=== PATIENT | male | born 1945 | race Hispanic/Latino ===

== ENCOUNTER 2022-02-12 10:56 | Emergency (ER) | payer MEDICARE, OTHER ==
[~2022-02-12 10:56] MED LIST: Iopamidol 300 61% 100 ML VIAL FS ONE
[2022-02-12] MEDS ORDERED: Mag-Al Plus 1200 MG/1200 MG/120 MG/30 ML UDCUP ONE (12:13)
[2022-02-12] MEDS ORDERED: Lidocaine Viscous Sol 2% 15 ml UD Cup ONE (12:13)
[2022-02-12 13:28] LABS: #Eosinphils 0.2 10x3/uL (0.0-0.5); #Monocytes 0.6 10x3/uL (0.0-1.1); #Neutrophils 2.4 10x3/uL (1.5-8.4); %Basophils 0.9 % (0.0-2.0); %Eosinophils 4.2 % (0.0-6.0); %Lymphocytes 23.8 % (18.0-47.0); %Monocytes 14.5 % (0.0-10.0); %Neutrophils 56.4 % (40.0-75.0); Hemoglobin 11.6 g/dL (13.5-17.5); Mean Corpuscular HGB CONC 33.3 g/dL (32.0-36.0); Mean Corpuscular Hemoglobin 30.6 pg (27.0-33.0); Mean Corpuscular Volume 91.8 fl (81.2-95.1); Mean Platelet Volume 11.4 fl (7.4-10.4); Platelet Count 106 10x3/uL (150-450); RBC Distribution Width 15.3 % (11.5-14.5); Red Blood Cell (RBC) Count 3.79 10x6/uL (4.32-5.72); White Blood Cell (WBC) Count 4.3 10x3/uL (3.5-10.5)
[2022-02-12 13:33] LABS: ALT (SGPT) 12 U/L (8-55); AST (SGOT) 28 U/L (5-34); Albumin 3.3 g/dL (3.4-4.8); Alkaline Phosphatase 50 U/L (40-110); Anion Gap 15 mmol/L (10-20); BUN (Urea Nitrogen) 27 mg/dL (8.4-25.7); Bilirubin, Total 0.4 mg/dL (0.2-1.2); CK (CPK) 269 U/L (30-200); Calc. Creatinine Clearance 0 mL/min (70-130); Calcium 8.4 mg/dL (7.8-10.44); Carbon Dioxide 26 mmol/L (23-31); Chloride 97 mmol/L (98-107); Globulin 2.8 g/dL (2.4-3.5); Glucose 94 mg/dL (83-110); Lipase 20 U/L (8-78); Potassium 3.8 mmol/L (3.5-5.1); Protein, Total 6.1 g/dL (5.8-8.1); Sodium 134 mmol/L (136-145)
[2022-02-12 13:54] LABS: CKMB 2.6 ng/mL (0-6.6)
== END 2022-02-12 14:25 | disposition home or self-care (01) ==
LOC: CSHERS 10:56
DX: K29.00 Acute gastritis without bleeding (principal); I10 Essential (primary) hypertension; I12.0 Hypertensive chronic kidney disease with stage 5 chronic kidney disease or end stage renal disease; N18.6 End stage renal disease; Z99.2 Dependence on renal dialysis
CPT/HCPCS: 36415; 74177; 76705; 80053; 82550; 82553; 83605; 83690; 84484; 85025; 93005

== ENCOUNTER 2022-03-29 12:31 | Inpatient (IN) | payer OTHER, MEDICAID ==
[2022-03-29 13:04] VITALS: BMI 26.0
[2022-03-29] MEDS ORDERED: Ondansetron PF 4 MG/2 ML Vial IVP PRN (14:42)
[2022-03-29] MEDS ORDERED: Ondansetron ODT 4 MG TAB PO PRN (14:42)
[2022-03-29] MEDS ORDERED: Meclizine HCl 12.5 MG TAB PO PRN (14:55)
[2022-03-29] MEDS ORDERED: Amlodipine 10 MG TAB PO SCH (16:45)
[2022-03-29] MEDS ORDERED: Meclizine HCl 12.5 MG TAB PO SCH (17:00)
[2022-03-29] MEDS: Carvedilol 3.125 MG TAB PO SCH (17:07)
[2022-03-29] MEDS: hydrALAZINE 20 MG/ML VIAL SLOW IVP PRN (17:07)
[2022-03-29] MEDS: Meclizine HCl 12.5 MG TAB PO SCH (21:12)
[2022-03-29] MEDS: Acetaminophen 325 MG TAB PO PRN (21:12)
[2022-03-30] MEDS: hydrALAZINE 20 MG/ML VIAL SLOW IVP PRN ×2 (00:10→05:00)
[2022-03-30 01:02] LABS: Hemoglobin A1c 5.3 % (4.0-6.0)
[2022-03-30] MEDS ORDERED: Nitroglycerin 2% Ointment 1 INCH/1 GM Packet TOP SCH (02:45)
[2022-03-30] MEDS: Acetaminophen 325 MG TAB PO PRN (04:14)
[2022-03-30 04:44] LABS: #Basophils 0.1 10x3/uL (0.0-0.2); #Eosinphils 0.2 10x3/uL (0.0-0.5); #Monocytes 0.6 10x3/uL (0.0-1.1); #Neutrophils 2.5 10x3/uL (1.5-8.4); %Basophils 1.1 % (0.0-2.0); %Eosinophils 5.3 % (0.0-6.0); %Lymphocytes 21.6 % (18.0-47.0); %Monocytes 13.3 % (0.0-10.0); %Neutrophils 58.5 % (40.0-75.0); Mean Corpuscular HGB CONC 34.1 g/dL (32.0-36.0); Mean Corpuscular Hemoglobin 30.9 pg (27.0-33.0); Mean Corpuscular Volume 90.4 fl (81.2-95.1); Mean Platelet Volume 10.9 fl (7.4-10.4); Platelet Count 133 10x3/uL (150-450); RBC Distribution Width 18.6 % (11.5-14.5); Red Blood Cell (RBC) Count 3.24 10x6/uL (4.32-5.72); White Blood Cell (WBC) Count 4.4 10x3/uL (3.5-10.5)
[2022-03-30 05:07] LABS: ALT (SGPT) 12 U/L (8-55); AST (SGOT) 25 U/L (5-34); Albumin 3.1 g/dL (3.4-4.8); Alkaline Phosphatase 76 U/L (40-110); Anion Gap 16 mmol/L (10-20); BUN (Urea Nitrogen) 33 mg/dL (8.4-25.7); Bilirubin, Total 0.5 mg/dL (0.2-1.2); Calc. Creatinine Clearance 8 mL/min (70-130); Calcium 8.3 mg/dL (7.8-10.44); Carbon Dioxide 26 mmol/L (23-31); Chloride 101 mmol/L (98-107); Estimated GFR 6; Globulin 2.9 g/dL (2.4-3.5); Glucose 102 mg/dL (83-110); Potassium 5.2 mmol/L (3.5-5.1); Sodium 138 mmol/L (136-145)
[2022-03-30] MEDS: Meclizine HCl 12.5 MG TAB PO SCH ×2 (06:22→13:49)
[2022-03-30] MEDS: Carvedilol 3.125 MG TAB PO SCH ×2 (08:22→17:26)
[2022-03-30] MEDS: Aspirin 81 mg Enteric Coated Tablet PO SCH (08:22)
[2022-03-30] MEDS: Amlodipine 10 MG TAB PO SCH (08:54)
[2022-03-30] MEDS ORDERED: Amlodipine 5 MG TAB PO SCH (09:00)
[2022-03-30] MEDS: EPOETIN ALFA-EPBX (ESRD) 4,000 UNIT/ML VIAL SC SCH (09:09)
[2022-03-30] MEDS: Heparin 5,000 UNITS/ML VIAL SC SCH ×2 (10:00→20:55)
[2022-03-30] MEDS ORDERED: Heparin 10,000 UNITS/ 10 ML VIAL FS SCH (11:30)
[2022-03-30] MEDS: HYDROcodone/Acetaminophen 5/325 mg Tablet PO PRN (14:56)
[2022-03-30] MEDS ORDERED: Meclizine HCl 25 MG TAB PO SCH ×2 (15:45→16:00)
[2022-03-30] MEDS ORDERED: hydrALAZINE 25 MG TAB PO SCH (16:00)
[2022-03-30] MEDS: Meclizine HCl 25 MG TAB PO SCH (20:53)
[2022-03-30] MEDS: hydrALAZINE 25 MG TAB PO SCH (20:54)
[2022-03-31 05:04] LABS: Hemoglobin 9.7 g/dL (13.5-17.5); Mean Corpuscular Hemoglobin 30.8 pg (27.0-33.0); Mean Corpuscular Volume 90.5 fl (81.2-95.1); Mean Platelet Volume 11.4 fl (7.4-10.4); Platelet Count 134 10x3/uL (150-450); RBC Distribution Width 18.6 % (11.5-14.5); Red Blood Cell (RBC) Count 3.15 10x6/uL (4.32-5.72); White Blood Cell (WBC) Count 3.9 10x3/uL (3.5-10.5)
[2022-03-31 05:14] LABS: Anion Gap 15 mmol/L (10-20); BUN (Urea Nitrogen) 21 mg/dL (8.4-25.7); Calc. Creatinine Clearance 11 mL/min (70-130); Calcium 8.1 mg/dL (7.8-10.44); Carbon Dioxide 28 mmol/L (23-31); Chloride 100 mmol/L (98-107); Estimated GFR 10; Glucose 79 mg/dL (83-110); Phosphorus 3.2 mg/dL (2.3-4.7); Potassium 4.5 mmol/L (3.5-5.1); Sodium 138 mmol/L (136-145)
[2022-03-31 06:10] LABS: MDiff Complete? YES
[2022-03-31 07:21] LABS: Eosinophils 3 % (0-10); Lymphocytes 8 % (21-51); Monocytes 24 % (0-10); Neutrophil 65 % (42-75)
[2022-03-31 07:24] LABS: Hypochromia SLIGHT = 6-15 cells (100X) (0-5/hpf); Target Cells SLIGHT = 2-5 cells (100X) (0-1/hpf)
[2022-03-31 07:25] LABS: Platelet Morphology Comment Appears Adequate
[2022-03-31] MEDS: hydrALAZINE 25 MG TAB PO SCH ×3 (09:23→20:13)
[2022-03-31] MEDS: Aspirin 81 mg Enteric Coated Tablet PO SCH (09:23)
[2022-03-31] MEDS: Carvedilol 3.125 MG TAB PO SCH ×2 (09:23→16:28)
[2022-03-31] MEDS: Amlodipine 10 MG TAB PO SCH (09:23)
[2022-03-31] MEDS: Heparin 5,000 UNITS/ML VIAL SC SCH ×2 (09:24→20:13)
[2022-03-31] MEDS: Meclizine HCl 25 MG TAB PO SCH ×2 (09:24→20:14)
[2022-04-01] MEDS: HYDROcodone/Acetaminophen 5/325 mg Tablet PO PRN ×3 (00:17→21:59)
[2022-04-01] MEDS: Carvedilol 3.125 MG TAB PO SCH ×2 (08:56→17:43)
[2022-04-01] MEDS: Meclizine HCl 25 MG TAB PO SCH ×2 (08:56→21:38)
[2022-04-01] MEDS: Amlodipine 10 MG TAB PO SCH (08:56)
[2022-04-01] MEDS: Aspirin 81 mg Enteric Coated Tablet PO SCH (08:56)
[2022-04-01] MEDS: Heparin 5,000 UNITS/ML VIAL SC SCH ×2 (08:57→21:39)
[2022-04-01] MEDS: hydrALAZINE 25 MG TAB PO SCH ×3 (08:57→21:38)
[2022-04-01] MEDS: Melatonin 3 MG TAB PO PRN (23:34)
[2022-04-02 05:58] LABS: Anion Gap 15 mmol/L (10-20); BUN (Urea Nitrogen) 29 mg/dL (8.4-25.7); Calc. Creatinine Clearance 10 mL/min (70-130); Carbon Dioxide 27 mmol/L (23-31); Chloride 99 mmol/L (98-107); Estimated GFR 9; Glucose 87 mg/dL (83-110); Potassium 4.9 mmol/L (3.5-5.1); Sodium 136 mmol/L (136-145)
[2022-04-02 06:01] LABS: Hemoglobin 10.5 g/dL (13.5-17.5); Mean Corpuscular HGB CONC 34.1 g/dL (32.0-36.0); Mean Corpuscular Hemoglobin 30.9 pg (27.0-33.0); Mean Corpuscular Volume 90.6 fl (81.2-95.1); Mean Platelet Volume 10.3 fl (7.4-10.4); Platelet Count 154 10x3/uL (150-450); RBC Distribution Width 18.8 % (11.5-14.5); White Blood Cell (WBC) Count 4.6 10x3/uL (3.5-10.5)
[2022-04-02 06:29] LABS: MDiff Complete? YES
[2022-04-02 06:47] LABS: Eosinophils 5 % (0-10); Lymphocytes 31 % (21-51); Monocytes 14 % (0-10); Neutrophil 50 % (42-75)
[2022-04-02 06:48] LABS: Platelet Morphology Comment Appears Adequate; RBC Morphology Normal
[2022-04-02] MEDS: HYDROcodone/Acetaminophen 5/325 mg Tablet PO PRN ×2 (08:23→22:44)
[2022-04-02] MEDS: Meclizine HCl 25 MG TAB PO SCH ×2 (08:23→22:35)
[2022-04-02] MEDS: Carvedilol 3.125 MG TAB PO SCH ×2 (08:24→18:56)
[2022-04-02] MEDS: Amlodipine 10 MG TAB PO SCH (08:24)
[2022-04-02] MEDS: hydrALAZINE 25 MG TAB PO SCH ×3 (08:24→22:35)
[2022-04-02] MEDS: Heparin 5,000 UNITS/ML VIAL SC SCH ×2 (08:24→22:35)
[2022-04-02] MEDS: Aspirin 81 mg Enteric Coated Tablet PO SCH (08:24)
[2022-04-02] MEDS: Melatonin 3 MG TAB PO PRN (22:44)
[2022-04-03] MEDS: Meclizine HCl 25 MG TAB PO SCH ×2 (08:22→21:13)
[2022-04-03] MEDS: HYDROcodone/Acetaminophen 5/325 mg Tablet PO PRN ×2 (08:22→21:12)
[2022-04-03] MEDS: Aspirin 81 mg Enteric Coated Tablet PO SCH (08:23)
[2022-04-03] MEDS: Carvedilol 3.125 MG TAB PO SCH ×2 (08:23→17:08)
[2022-04-03] MEDS: Amlodipine 10 MG TAB PO SCH (08:27)
[2022-04-03] MEDS: hydrALAZINE 25 MG TAB PO SCH ×3 (08:27→21:12)
[2022-04-03] MEDS: Heparin 5,000 UNITS/ML VIAL SC SCH ×2 (08:40→21:15)
[2022-04-04] MEDS: HYDROcodone/Acetaminophen 5/325 mg Tablet PO PRN (01:16)
[2022-04-04] MEDS: Aspirin 81 mg Enteric Coated Tablet PO SCH (09:35)
[2022-04-04] MEDS: hydrALAZINE 25 MG TAB PO SCH ×3 (09:37→20:10)
[2022-04-04] MEDS: Meclizine HCl 25 MG TAB PO SCH ×2 (09:37→20:10)
[2022-04-04] MEDS: Heparin 5,000 UNITS/ML VIAL SC SCH ×2 (09:37→20:10)
[2022-04-04] MEDS: Carvedilol 3.125 MG TAB PO SCH ×2 (09:37→19:32)
[2022-04-04] MEDS: Amlodipine 10 MG TAB PO SCH (09:37)
[2022-04-04] MEDS: Acetaminophen 325 MG TAB PO PRN (09:38)
[2022-04-04] MEDS ORDERED: Bisacodyl 10 MG SUPP PR PRN (18:52)
[2022-04-04] MEDS: Polyethylene Glycol 3350 17 GM Packet PO SCH (20:09)
[2022-04-04] MEDS: Senokot S 8.6-50 MG TAB PO SCH (20:10)
[2022-04-05] MEDS: Acetaminophen 325 MG TAB PO PRN (05:32)
[2022-04-05] MEDS: Polyethylene Glycol 3350 17 GM Packet PO SCH ×2 (08:32→20:29)
[2022-04-05] MEDS: Senokot S 8.6-50 MG TAB PO SCH ×2 (08:32→20:29)
[2022-04-05] MEDS: Aspirin 81 mg Enteric Coated Tablet PO SCH (08:32)
[2022-04-05] MEDS: Carvedilol 3.125 MG TAB PO SCH ×2 (08:32→15:18)
[2022-04-05] MEDS: Meclizine HCl 25 MG TAB PO SCH ×2 (08:32→20:29)
[2022-04-05] MEDS: Amlodipine 10 MG TAB PO SCH (08:32)
[2022-04-05] MEDS: hydrALAZINE 25 MG TAB PO SCH ×3 (08:32→20:29)
[2022-04-05] MEDS: Heparin 5,000 UNITS/ML VIAL SC SCH ×2 (08:33→20:25)
[2022-04-05] MEDS ORDERED: Milk Of Magnesia 30 ML UDCUP PO SCH (15:00)
[2022-04-06 05:40] LABS: #Basophils 0.1 10x3/uL (0.0-0.2); #Eosinphils 0.3 10x3/uL (0.0-0.5); #Monocytes 0.7 10x3/uL (0.0-1.1); #Neutrophils 2.2 10x3/uL (1.5-8.4); %Basophils 1.3 % (0.0-2.0); %Eosinophils 5.7 % (0.0-6.0); %Lymphocytes 33.3 % (18.0-47.0); %Monocytes 13.8 % (0.0-10.0); %Neutrophils 45.3 % (40.0-75.0); Hemoglobin 9.4 g/dL (13.5-17.5); Mean Corpuscular HGB CONC 34.4 g/dL (32.0-36.0); Mean Corpuscular Hemoglobin 31.8 pg (27.0-33.0); Mean Corpuscular Volume 92.2 fl (81.2-95.1); Mean Platelet Volume 10.4 fl (7.4-10.4); Platelet Count 178 10x3/uL (150-450); RBC Distribution Width 20.4 % (11.5-14.5); Red Blood Cell (RBC) Count 2.96 10x6/uL (4.32-5.72); White Blood Cell (WBC) Count 4.8 10x3/uL (3.5-10.5)
[2022-04-06 05:59] LABS: ALT (SGPT) 14 U/L (8-55); AST (SGOT) 25 U/L (5-34); Albumin 3.1 g/dL (3.4-4.8); Alkaline Phosphatase 58 U/L (40-110); Anion Gap 19 mmol/L (10-20); BUN (Urea Nitrogen) 59 mg/dL (8.4-25.7); Bilirubin, Direct 0.2 mg/dL (0.1-0.3); Bilirubin, Total 0.5 mg/dL (0.2-1.2); Calc. Creatinine Clearance 7 mL/min (70-130); Carbon Dioxide 23 mmol/L (23-31); Chloride 102 mmol/L (98-107); Estimated GFR 5; Glucose 82 mg/dL (83-110); Magnesium 2.5 mg/dL (1.6-2.6); Potassium 5.5 mmol/L (3.5-5.1); Sodium 138 mmol/L (136-145)
[2022-04-06] MEDS: Carvedilol 3.125 MG TAB PO SCH ×2 (10:19→17:31)
[2022-04-06] MEDS: Aspirin 81 mg Enteric Coated Tablet PO SCH (10:19)
[2022-04-06] MEDS: Heparin 5,000 UNITS/ML VIAL SC SCH ×2 (10:19→22:15)
[2022-04-06] MEDS: Amlodipine 10 MG TAB PO SCH (10:19)
[2022-04-06] MEDS: Polyethylene Glycol 3350 17 GM Packet PO SCH ×2 (10:20→22:15)
[2022-04-06] MEDS: Senokot S 8.6-50 MG TAB PO SCH ×2 (10:20→22:14)
[2022-04-06] MEDS: hydrALAZINE 25 MG TAB PO SCH ×3 (10:20→22:14)
[2022-04-06] MEDS: Meclizine HCl 25 MG TAB PO SCH ×2 (10:20→22:14)
[2022-04-06] MEDS: EPOETIN ALFA-EPBX (ESRD) 4,000 UNIT/ML VIAL SC SCH (14:45)
[2022-04-07] MEDS: HYDROcodone/Acetaminophen 5/325 mg Tablet PO PRN ×2 (05:07→08:56)
[2022-04-07 05:35] LABS: #Eosinphils 0.2 10x3/uL (0.0-0.5); #Monocytes 0.6 10x3/uL (0.0-1.1); #Neutrophils 2.2 10x3/uL (1.5-8.4); %Basophils 0.9 % (0.0-2.0); %Eosinophils 4.8 % (0.0-6.0); %Lymphocytes 32.5 % (18.0-47.0); %Monocytes 13.9 % (0.0-10.0); %Neutrophils 47.5 % (40.0-75.0); Hemoglobin 9.7 g/dL (13.5-17.5); Mean Corpuscular HGB CONC 34.3 g/dL (32.0-36.0); Mean Corpuscular Hemoglobin 31.2 pg (27.0-33.0); Mean Platelet Volume 9.9 fl (7.4-10.4); Platelet Count 173 10x3/uL (150-450); RBC Distribution Width 20.5 % (11.5-14.5); Red Blood Cell (RBC) Count 3.11 10x6/uL (4.32-5.72); White Blood Cell (WBC) Count 4.6 10x3/uL (3.5-10.5)
[2022-04-07 06:03] LABS: Anion Gap 17 mmol/L (10-20); BUN (Urea Nitrogen) 40 mg/dL (8.4-25.7); Calc. Creatinine Clearance 9 mL/min (70-130); Calcium 8.2 mg/dL (7.8-10.44); Carbon Dioxide 27 mmol/L (23-31); Chloride 100 mmol/L (98-107); Estimated GFR 7; Glucose 88 mg/dL (83-110); Magnesium 2.3 mg/dL (1.6-2.6); Potassium 5.1 mmol/L (3.5-5.1); Sodium 139 mmol/L (136-145)
[2022-04-07] MEDS: Aspirin 81 mg Enteric Coated Tablet PO SCH (08:45)
[2022-04-07] MEDS: Polyethylene Glycol 3350 17 GM Packet PO SCH (08:45)
[2022-04-07] MEDS: hydrALAZINE 25 MG TAB PO SCH (08:45)
[2022-04-07] MEDS: Meclizine HCl 25 MG TAB PO SCH (08:45)
[2022-04-07] MEDS: Heparin 5,000 UNITS/ML VIAL SC SCH (08:45)
[2022-04-07] MEDS: Amlodipine 10 MG TAB PO SCH (08:45)
[2022-04-07] MEDS: Carvedilol 3.125 MG TAB PO SCH (08:45)
[2022-04-07] MEDS: Senokot S 8.6-50 MG TAB PO SCH (08:45)
[2022-04-07 12:46] VITALS: BP 100/49; TEMP 98
== END 2022-04-07 14:30 | disposition home or self-care (01) | DRG 149 ==
LOC: INTOOBSV 12:31 → CSHTELE 12:31 → OBSVTOIN 03-31 16:48
PROVIDERS: ADMIT Internal Medicine; ATTEND Family Medicine
PROC: 5A1D70Z Performance of Urinary Filtration, Intermittent, Less than 6 Hours Per Day (ICD-10-PCS; principal; 2022-04-02)
DX: H81.10 Benign paroxysmal vertigo, unspecified ear (principal); N18.6 End stage renal disease; I12.0 Hypertensive chronic kidney disease with stage 5 chronic kidney disease or end stage renal disease; L03.113 Cellulitis of right upper limb; N25.81 Secondary hyperparathyroidism of renal origin; Z20.822 Contact with and (suspected) exposure to COVID-19; G51.0 Bell's palsy; M54.31 Sciatica, right side; R29.810 Facial weakness; M19.09 Primary osteoarthritis, other specified site; M19.071 Primary osteoarthritis, right ankle and foot; H93.11 Tinnitus, right ear; D63.1 Anemia in chronic kidney disease; R27.0 Ataxia, unspecified; D69.6 Thrombocytopenia, unspecified; Z99.2 Dependence on renal dialysis; Z88.0 Allergy status to penicillin; Z88.8 Allergy status to other drugs, medicaments and biological substances; Z91.040 Latex allergy status; Z79.899 Other long term (current) drug therapy; Z79.82 Long term (current) use of aspirin; Z79.51 Long term (current) use of inhaled steroids
CPT/HCPCS: 36415; 36416; 70551; 80048; 80053; 80076; 83036; 83735; 83970; 84100; 85025; 90935; 93306; 96372; 96374; 96376; G0257; G0378; J0360; J1644; Q5105; U0003; U0005